=== PATIENT | male | born 1995 | race Hispanic/Latino ===

== ENCOUNTER 2019-10-01 11:00 | Outpatient (CLI) | payer OTHER ==
--- NOTE | 2019-10-01 17:33 | RAD ---
LEFT ANKLE THREE VIEWS: 10/01/19 Marked soft tissue swelling is present, especially laterally. No underlying fracture was seen. The ar ticular surfaces are smooth. IMPRESSION: Soft tissue swelling. POS: HOME
== END 2019-10-01 11:01 | disposition home or self-care (01) ==
LOC: BURRAD 11:00
PROVIDERS: ATTEND Registered Nurse Community Health
DX: M25.572 Pain in left ankle and joints of left foot (principal); M79.89 Other specified soft tissue disorders

== ENCOUNTER 2021-05-18 17:57 | Emergency (ER) | payer OTHER ==
[~2021-05-18 17:57] MED LIST: Iopamidol 370 76% 100 ML VIAL ONE
[2021-05-18] MEDS ORDERED: Ondansetron PF 4 MG/2 ML Vial ONE (18:22)
[2021-05-18] MEDS ORDERED: Acetaminophen 500 MG TAB ONE (19:32)
[2021-05-18 19:59] LABS: #Lymphocytes 0.7 thou/uL (1.20-3.40); #Monocytes 0.4 thou/uL (0.11-0.59); #Neutrophils 4.7 thou/uL (1.40-6.50); %Basophils 0.1 % (0.0-1.0); %Lymphocytes 11.6 % (21.0-51.0); %Monocytes 7.1 % (0.0-10.0); %Neutrophils 81.2 % (42.0-75.0); Hemoglobin 14.1 g/dL (14.0-18.0); Mean Corpuscular HGB CONC 33.6 g/dL (32.0-36.0); Mean Corpuscular Hemoglobin 29.7 pg (27.0-31.0); Mean Corpuscular Volume 88.4 fL (78.0-98.0); Mean Platelet Volume 11.3 fL (7.4-10.4); Platelet Count 141 thou/uL (130-400); Red Blood Cell (RBC) Count 4.73 mill/uL (4.70-6.10); White Blood Cell (WBC) Count 5.8 thou/uL (4.8-10.8)
[2021-05-18 20:17] LABS: ALT (SGPT) 30 U/L (8-55); AST (SGOT) 42 U/L (5-34); Albumin 3.4 g/dL (3.5-5.0); Alkaline Phosphatase 55 U/L (40-110); Anion Gap 15 mmol/L (10-20); BUN (Urea Nitrogen) 19 mg/dL (8.9-20.6); Bilirubin, Total 0.5 mg/dL (0.2-1.2); Calc. Creatinine Clearance 0 mL/min (70-130); Calcium 8.1 mg/dL (7.8-10.44); Carbon Dioxide 21 mmol/L (22-29); Chloride 109 mmol/L (98-107); Globulin 3.2 g/dL (2.4-3.5); Glucose 101 mg/dL (70-105); Potassium 4.1 mmol/L (3.5-5.1); Protein, Total 6.6 g/dL (6.0-8.3); Sodium 141 mmol/L (136-145)
[2021-05-18 22:19] LABS: SARS-CoV-2 NAA Rapid Test DETECTED (NotDetected)
== END 2021-05-18 22:57 | disposition home or self-care (01) ==
LOC: BURERS 17:57
DX: U07.1 COVID-19 (principal)
CPT/HCPCS: 71275; 80053; 83605; 83880; 84484; 85025; 93005; 94760; 96374; J2405; Q9967; U0002